=== PATIENT | female | born 1990 | race Caucasian/White ===

== ENCOUNTER 2020-06-20 05:04 | Outpatient (CLI) | payer BC, SELFPAY ==
[2020-06-20 10:35] LABS: Anion Gap 5.4 mmol/L (3-11); BUN 16 mg/dL (7-18); CO2 30.6 mmol/L (21.0-32.0); CREATININE 1.11 mg/dL (0.55-1.02); Calcium 8.7 mg/dL (8.5-10.1); Calculated LDL 57 mg/dL (<100); Chloride 105 mmol/L (98-107); Cholesterol 124 mg/dL (<200); Estimated GFR 58.96 (mL/min/1.73m2); Glucose 77 mg/dL (74-106); HDL Cholesterol 60 mg/dL (40-60); Sodium 141 mmol/L (136-145); Triglyceride 39 mg/dL (<150)
== END 2020-06-20 05:24 ==
PROVIDERS: PCP Nurse Practitioner Family; Visit Provider Nurse Practitioner Family
DX: Z00.00 Encounter for general adult medical examination without abnormal findings (principal); Z13.220 Encounter for screening for lipoid disorders
CPT/HCPCS: 36415; 80048; 80061

== ENCOUNTER 2020-06-28 12:33 | Outpatient (REF) | payer BC, SELFPAY ==
--- NOTE | 2020-06-28 12:05 | PAPFT_PTH ---
PATIENT: Grant Saavedra LOC: [facility] U#:[id number] AGE/SX: 29/F ROOM: RE06/28/[address]: Shirley Neff MD : 1990 BED: DIS: 06/28/2020 SPEC #: [id number] RECD: 06/28/20 12:50 STATUS: DEBBIE LABOY #: [id number] YASHIAR: 06/28/20 12:[address]: Shirley Neff DEPT: [facility] Cytology RECD BY: Eleni Britt ENTERED: 06/28/20 12:50 SP TYPE: PAPFT OT DR: Carrie Wolf, DARION Tissues: 1 - CX/ENDOCX FOR PAP SMEARS Procedures: PAP THIN PREP/[facility] Screening Comments: [id number] (CHLAMYDIA/GC)
[2020-07-01 15:11] LABS: Chlamydia Result Negative (Negative); GC Result Negative (Negative)
== END 2020-06-28 12:53 ==
LOC: LBN 12:33
PROVIDERS: PCP Nurse Practitioner Family; Visit Provider Obstetrics & Gynecology
DX: Z11.3 Encounter for screening for infections with a predominantly sexual mode of transmission (principal); Z12.4 Encounter for screening for malignant neoplasm of cervix
CPT/HCPCS: 87491; 87591; 88142

== ENCOUNTER 2020-06-28 12:46 | Outpatient (REF) | payer BC, SELFPAY | END 2020-06-28 13:06 | LOC: LBN 12:46 | PROVIDERS: PCP Nurse Practitioner Family; Visit Provider Obstetrics & Gynecology | DX: N89.8 Other specified noninflammatory disorders of vagina (principal) | CPT/HCPCS: 87480; 87510; 87660 ==

== ENCOUNTER 2020-09-26 02:20 | Outpatient (CLI) | payer BC, SELFPAY ==
[2020-09-26 11:53] LABS: ALT 27 U/L (14-59); AST 26 U/L (15-37); Triglyceride 41 mg/dL (<150)
== END 2020-09-26 02:21 | disposition home or self-care (01) ==
LOC: LBO 02:20
PROVIDERS: PCP Nurse Practitioner Family; Visit Provider Student in an Organized Health Care Education/Training Program
DX: Z79.899 Other long term (current) drug therapy (principal); L70.0 Acne vulgaris
CPT/HCPCS: 36415; 84450; 84460; 84478

== ENCOUNTER 2020-11-07 03:01 | Outpatient (CLI) | payer BC, SELFPAY ==
[2020-11-07 11:30] LABS: ALT 24 U/L (14-59); AST 23 U/L (15-37); Triglyceride 32 mg/dL (<150)
== END 2020-11-07 03:02 | disposition home or self-care (01) ==
PROVIDERS: PCP Nurse Practitioner Family; Visit Provider Student in an Organized Health Care Education/Training Program
DX: Z79.899 Other long term (current) drug therapy (principal)
CPT/HCPCS: 36415; 84450; 84460; 84478

== ENCOUNTER 2021-06-01 10:53 | Emergency (ER) | payer BC, SELFPAY ==
[2021-06-01] VITALS (21 sets, daily range): BP systolic 106–132; BP diastolic 66–87; PULSE 66–128; RESP 15–27; TEMP 36.4–36.6; O2SAT 96–100
--- NOTE | 2021-06-01 10:45 | RT.EKG_ITS ---
APPROVED REPORT Exam: Resting ECG Reason for Exam: chest pain Patient Location: E HR:100 bpm ECG Measurements Heart Rate 100 AXIS TN 163 P 59 QRSd 87 QRS 45 QT 342 T 43 QTc 440 Conclusion Sinus tachycardia...rate> 99. Sinus. No STEMI. I have reviewed and interpreted ECG and agree with software generated interpretation.
[2021-06-01 11:29] LABS: Abs Immature Grans 0.01 10^3/uL (0.0-0.06); Absolute Basophil Count 0.02 10^3/uL (0.0-0.2); Absolute Eosinophil Count 0.06 10^3/uL (0.0-0.7); Absolute Lymphocyte Count 2.25 10^3/uL (1.2-3.4); Absolute Monocyte Count 0.46 10^3/uL (0.1-0.8); Basophils % 0.3; Eosinophils % 0.8; HCT 44.6 % (36.0-46.0); HGB 15.4 g/dL (11.2-15.7); Immature Grans % 0.1; Lymphocytes % 29.2; MCHC 34.5 % (32.0-36.0); MCV 86.9 fL (80-95); MPV 10.2 fL (8.0-11.0); Neutrophils % 63.6; Nucleated RBC 0 %; Platelet Count 180 10^3/uL (130-400); RBC 5.13 10^6/uL (3.93-5.22); RDW 11.1 % (11.7-14.6); RDW-SD 35.1 fL
[2021-06-01 11:38] LABS: Lipase 139 U/L (73-393)
--- NOTE | 2021-06-01 11:45 | NUR.NOTE ---
11:30 - pt refusing toradol at this time encouraged to ring for nurse if she needs it Nursing Note:
[2021-06-01 11:46] LABS: Troponin I < 50 ng/L (<or=60)
[2021-06-01 11:51] LABS: HCG Quant, Pregnancy < 1 mIU/mL (1-3)
--- NOTE | 2021-06-01 12:00 | DI.RAD_ITS ---
Exam(s) XR CHEST 2V PA LATERAL EXAM: XR CHEST 2V PA LATERAL CLINICAL HISTORY: chest pain TECHNIQUE: 2D digital imaging was performed. COMPARISON: CT CHEST FOR PULMONARY EMBOLUS from 11/25/2015 CT CHEST FOR PULMONARY EMBOLUS from 11/25/2015 FINDINGS: The heart is not enlarged. The lungs are clear and well expanded. No pleural effusion seen. Mediastin al contours appear intact. IMPRESSION: Normal chest. RADIATION DOSE DELIVERED: Total DLP
[2021-06-01 12:01] LABS: D-Dimer 142 ng/mlFEU (<500)
--- NOTE | 2021-06-01 12:05 | ED.GENADUL_ITS ---
Discharge Plan Disposition Patient Disposition: HOME Condition: Stable Discharge Details Clinical Impression: Chest pain, Atypical chest pain Primary Care Provider: Carrie Wolf ED Provider: Eleni Mcbride Home Meds and New Rx's Prescriptions: Continued isotretinoin 30 mg capsule 30 mg PO BID RF: 0 ammonium lactate 12 % cream 1 applic topical QD-BID PRNRF: 0 Mirena 20 mcg/24 hours (6 yrs) 52 mg intrauterine device 1 insert intrauterine ONCE RF: 0 diclofenac potassium 50 mg tablet 50 mg PO BID 10 Days Qty: 20 RF: 0 cyclobenzaprine 10 mg tablet 10 mg PO TID 10 Days Qty: 30 RF: 0 albuterol sulfate 90 mcg/actuation HFA aerosol inhaler 2 inh inhalation Q6H PRN (Reason: shortness of breath or wheezing) Qty: 18 RF: 4 Discharge Instructions Instructions: Chest Pain (ED) Additional Instructions: Take the Flexeril as needed for musculoskeletal pain Ibuprofen 600 mg every 8 hours with food for the next 3 days and may use Tylenol 650 mg every 4-6 hours Please return with worsening pain, shortness of breath, fever, chills, or should you have new or worsening complaints Your tests today were all negative including your chest x-ray did that did not show abnormality I suspect your symptoms are musculoskeletal in nature but should you have persistent symptoms, my recommendation is that you see your doctor in follow-up Referrals: Carrie Wolf, SLOT FLOOR PERSON [Primary Care Provider] - Discharge Data Discharge Date/Time-TO BE ENTERED AT DEPARTURE: 06/01/21 12:59 Medical Decision Making Patient appears well, D-dimer negative, troponin -1-week of symptoms reassuring and a very low risk patient Denies any current chest discomfort, chest x-ray without acute abnormality, I ulloa spect her pain is musculoskeletal in nature, she will take ibuprofen and her Flexeril as needed for discomfort She is been Covid negative x2 rapid test at home Given low threshold to return should she have new or worsening She is PERC negative aside from tachycardia Patient is discharged home in stable condition with stable vital will need recheck in 1 to 2 days for reassessment Medical Records Medical records reviewed: Yes I reviewed the patient's medical records. Lab Data Lab results reviewed: Yes I reviewed the patient's lab results. HPI General Mode of arrival: ambulatory . Date/Time Provider Initiated Documentation: 06/01/21 11:06 . Limitations to Documentation: no limitations . Information obtained by: patient . HPI Narrative: This 30-year-old female presents with intermittent chest pain for the past week. She denies any associated shortness of breath. She states that she a week ago requesting pain in the mid scapular region and attributed it to working out and possibly laying in a position which may have caused strain. She states she awoke with the pain and has been treated with diclofenac and cyclobenzaprine. She states that she presents today secondary to persistent pain. She states that it radiates all over her chest and has not been in 1 specific location. She did have the pain in the left side of her chest intermittently for the past 24 hours which concerned her. There is no family history of coronary artery disease early on. There is no history of hypertension or hyperlipidemia for this patient. She does not smoke tobacco or use any illicit drugs. She denies any chance of as drain in place. She did denies using Accutane approximately 4 days ago. She has not had any issue with this medication before. Denies any calf pain or swelling, recent flights, surgeries, long drives, or history of coagulopathy. She denies any illnesses. She did take 2 - negative Covid test this week secondary to the pain. Denies any exacerbating or alleviating factors. She does state when she has pain which she does not at this time but if she moves her arms but does exacerbate her symptoms. Related Data Home Medications Medication Instructions Recorded Confirmed albuterol sulfate 90 mcg/actuation 2 inh INHALATION Q6H PRN #18 g 06/14/20 06/01/21 aerosol inhaler ammonium lactate 12 % topical cream 1 applic TOPICAL QD-BID PRN 01/16/21 06/01/21 isotretinoin 30 mg capsule 30 mg PO BID 01/16/21 05/29/21 levonorgestrel 20 mcg/24 hours (7 1 insert INTRAUTERINE ONCE 01/16/21 06/01/21 yrs) 52 mg intrauterine device cyclobenzaprine 10 mg tablet 10 mg PO TID 10 Days #30 tab 05/29/21 06/01/21 diclofenac potassium 50 mg tablet 50 mg PO BID 10 Days #20 tab 05/29/21 06/01/21 Previous Rx's Medication Instructions Recorded albuterol sulfate 90 mcg/actuation 2 inh INHALATION Q6H PRN #18 g 06/14/20 aerosol inhaler cyclobenzaprine 10 mg tablet 10 mg PO TID 10 Days #30 tab 05/29/21 diclofenac potassium 50 mg tablet 50 mg PO BID 10 Days #20 tab 05/29/21 Allergies Allergy/AdvReac Type Severity Reaction Status Date / Time No Known Allergies Allergy Verified 06/01/21 11:10 General Stated Complaint: Chest Pain CANDE: 2 Review of Systems All systems reviewed & are unremarkable except as noted in HPI and below PFSH All Active Problems (Updated 06/01/21 @ 12:52 by CROW Benjamin) Chest pain (Acute) Atypical chest pain (Acute) IUD surveillance (Chronic) Mirena IUD placed 07/19/20 Acne vulgaris (Acute) Abnormal uterine bleeding (Acute) Exercise-induced asthma (Acute) Medical History Abnormal uterine bleeding Acne vulgaris Exercise-induced asthma Generalized anxiety disorder IUD surveillance Mirena IUD placed 07/19/20 Surgical History H/O neck surgery (~2009) Bitracheal cleft cyst cauterization S/P left knee surgery [facility] IT band release Family History Mother Melanoma Hyperlipidemia Father Melanoma Brother No problems noted. Maternal Grandfather , 80's Diabetes Heart disease Melanoma Paternal Grandfather No problems noted. Maternal Grandmother Heart disease Stroke Paternal Grandmother No problems noted. Social History Smoking/Tobacco Use Status: Never Second Hand Exposure: No Smoking risk assessment performed?: Yes Alcohol Intake: current Alcohol Intake frequency: holidays/special occasions only Alcohol type: beer, wine and hard liquor Drug use: Never Substance use type: does not use Caregiver/Support person: No Household members: family Housing: house Communication Needs: None Do you need help understanding health information?: Never Pets and animals: Yes Pets and animals: dog(s) Sexually active: No Do you think of yourself as: straight/heterosexual Current gender identity: female What is your relationship status?: never How often do you talk on the phone with friends or family?: three or more times per week How often do you get together with friends or relatives?: three or more times per week How often do you attend islam or jainism services?: 1-3 times per year Do you belong to any clubs or organized social groups?: no Panel score (0-1 are the most socially isolated patients): 1 What type of physical activity do you participate in: walking, running and additional Details: dancing,studio classes Duration: > 90 minutes/day Frequency: daily Gisela/Mormon: agnostic Seatbelt use: always Drive intox or ride w/intox motor bus driver: No Do you feel safe at home: Yes Do you feel safe in your relationship?: Yes Female Reproductive History Menstrual Age of Menarche: 12 control method: none Exam Const General: cooperative, comfortable and no acute distress Eyes Pupils: PERRL Chest Other: No reproducible chest wall tenderness, no rashes or lesions Resp Effort & Inspection: normal respiratory effort Auscultation: clear to auscultation bilaterally Cardio Rate: regular rate Rhythm: regular rhythm GI Other: No abdominal tenderness, no flank tenderness Skin General skin exam: no rashes or lesions noted Neuro General: patient alert and patient oriented x3 Extrem Other: No calf swelling or tenderness Course Vital Signs Vital signs: Vital Signs Temperature 36.4 C L 06/01/21 11:02 Pulse 105 H 06/01/21 11:02 Respiratory Rate 17 06/01/21 11:02 Blood Pressure 129/87 06/01/21 11:02 Pulse Oximetry 98 06/01/21 11:02 Temperature 36.4 C L 06/01/21 11:02 Temperature Source Skin 06/01/21 11:02 Pulse 78 06/01/21 11:45 Pulse 79 06/01/21 11:50 Respiratory Rate 15 06/01/21 11:50 Respiratory Effort 06/01/21 11:15 Blood Pressure 111/66 06/01/21 11:45 Blood Pressure Mean 75 06/01/21 11:45 Pulse Oximetry 99 06/01/21 11:50 Oxygen Delivery Method Room Air 06/01/21 11:02 Oxygen Flow Rate 0 06/01/21 11:02 Pain Level 8 06/01/21 11:02 Comment 06/01/21 11:02 Lab/Test Results Lab/Test Results: Laboratory Tests Range/Units 06/01/21 06/01/21 06/01/21 11:15 11:15 11:15 WBC (4.4-10.8) 10^3/uL RBC (3.93-5.22) 10^6/uL Hgb (11.2-15.7) g/dL Hct (36.0-46.0) % MCV (80-95) fL MCH (27.0-33.0) pg MCHC (32.0-36.0) % RDW (11.7-14.6) % Plt Count (130-400) 10^3/uL MPV (8.0-11.0) fL Immature Gran % Neutrophils % Lymphocytes % Monocytes % Eosinophils % Basophils % Nucleated RBC % % Absolute Neutrophils (1.2-6.7) 10^3/uL Absolute Lymphocytes (1.2-3.4) 10^3/uL Absolute Monocytes (0.1-0.8) 10^3/uL Absolute Eosinophils (0.0-0.7) 10^3/uL Absolute Basophils (0.0-0.2) 10^3/uL D-Dimer (<500) ng/mlFEU 142 Troponin I (<or=60) ng/L Lipase (73-393) U/L 139 Beta HCG, Quant (1-3) mIU/mL < 1 L Range/Units 06/01/21 06/01/21 11:15 11:15 WBC (4.4-10.8) 10^3/uL 7.70 RBC (3.93-5.22) 10^6/uL 5.13 Hgb (11.2-15.7) g/dL 15.4 Hct (36.0-46.0) % 44.6 MCV (80-95) fL 86.9 MCH (27.0-33.0) pg 30.0 MCHC (32.0-36.0) % 34.5 RDW (11.7-14.6) % 11.1 L Plt Count (130-400) 10^3/uL 180 MPV (8.0-11.0) fL 10.2 Immature Gran % 0.1 Neutrophils % 63.6 Lymphocytes % 29.2 Monocytes % 6.0 Eosinophils % 0.8 Basophils % 0.3 Nucleated RBC % % 0 Absolute Neutrophils (1.2-6.7) 10^3/uL 4.90 Absolute Lymphocytes (1.2-3.4) 10^3/uL 2.25 Absolute Monocytes (0.1-0.8) 10^3/uL 0.46 Absolute Eosinophils (0.0-0.7) 10^3/uL 0.06 Absolute Basophils (0.0-0.2) 10^3/uL 0.02 D-Dimer (<500) ng/mlFEU Troponin I (<or=60) ng/L < 50 Lipase (73-393) U/L Beta HCG, Quant (1-3) mIU/mL PAWSS Have you Been Recently Intoxicated or Drunk Within the Last 30 days?: No Have you Ever Experienced Previous Episodes of Alcohol Withdrawal?: No Have you ever Experienced Withdrawal Seizures?: No Have you ever Experienced Delirium Tremens(DT)s?: No Have you ever undergone Alcohol Rehabilitation Treatment (i.e, inpt ot outpatient treatment programs)?: No Have you ever Experienced Blackouts?: No Have you ever Combined Alcohol with other Downers within the last 90 days?: No Have you ever Combined Alcohol with any other Substance of Abuse during the last 90 days?: No Positive Blood Alcohol level on Presentation? [PCS.BAL]: No Evidence of Increased Autonomic Activity (i.e. HR>120, tremor, sweating, agitation, nausea)?: No Result: 0
--- NOTE | 2021-06-01 12:23 | DI.VRAD_ITS ---
PROCEDURE INFORMATION: Exam: XR Chest Exam date and time: 06/01/2021 12:03 PM Age: 30 years old Clinical indication: Other: Chest pain TECHNIQUE: Imaging protocol: XR of the chest. Views: 2 views. COMPARISON: CT CHEST FOR PULMONARY EMBOLUS 11/25/2015 6:11 PM FINDINGS: Lungs: Clear lungs. Pleural spaces: No sizable pleural effusion. No pneumothorax. Heart/Mediastinum: Cardiomediastinal silhouette is within normal limits. Bones/joints: No acute displaced fracture or dislocation. IMPRESSION: No acute cardiopulmonary process. Dictated and Authenticated by: Elmer Gonzalez MD. Ordering:AURORA Knowles MD
== END 2021-06-01 12:59 | disposition home or self-care (01) ==
PROVIDERS: Emergency Provider Physician Assistant; PCP Nurse Practitioner Family
DX: R07.89 Other chest pain (principal); R00.0 Tachycardia, unspecified; M54.89 Other dorsalgia; R07.9 Chest pain, unspecified
CPT/HCPCS: 36415; 83690; 93005; 96374; 99284; 71046; 84484; 84702; 85025; 85379; 93010

== ENCOUNTER 2021-08-04 14:11 | Outpatient (REF) | payer BC, SELFPAY | END 2021-08-04 14:12 | disposition home or self-care (01) | LOC: LBN 14:11 | PROVIDERS: PCP Nurse Practitioner Family; Visit Provider Nurse Practitioner Family | DX: J02.9 Acute pharyngitis, unspecified (principal) | CPT/HCPCS: 87070 ==

== ENCOUNTER 2021-11-18 00:46 | Outpatient (CLI) | payer BC, SELFPAY ==
[2021-11-18 11:04] LABS: HCT 38.8 % (36.0-46.0); HGB 13.6 g/dL (11.2-15.7); MCH 30.8 pg (27.0-33.0); MCHC 35.1 % (32.0-36.0); MCV 88 fL (80-95); MPV 11.1 fL (8.0-11.0); Platelet Count 179 10^3/uL (130-400); RBC 4.42 10^6/uL (3.93-5.22); RDW 12.3 % (11.7-14.6); WBC 5.57 10^3/uL (4.4-10.8)
[2021-11-18 12:07] LABS: ALT 26 U/L (14-59); AST 26 U/L (15-37); Albumin 3.9 g/dL (3.4-5.0); Alkaline Phosphatase 55 U/L (46-116); Anion Gap 8.4 mmol/L (3-11); BUN 19 mg/dL (7-18); Bilirubin, Total 0.7 mg/dL (0.2-1.0); C-Reactive Protein 0.14 mg/dL (0.0-0.3); CO2 27.6 mmol/L (21.0-32.0); Calcium 8.7 mg/dL (8.5-10.1); Chloride 101 mmol/L (98-107); Glucose 81 mg/dL (74-106); Lipase 147 U/L (73-393); Potassium 3.8 mmol/L (3.5-5.1); Sodium 137 mmol/L (136-145); TSH (W/Ref FT4) 1.84 uIU/mL (0.36-3.74); Total Protein 7.5 g/dL (6.4-8.2)
[2021-11-18 12:28] LABS: Calculated LDL 71 mg/dL (<100); Cholesterol 143 mg/dL (<200); HDL Cholesterol 66 mg/dL (40-60); Triglyceride 31 mg/dL (<150)
[2021-11-19 13:59] LABS: IgA 329 mg/dL (85-499); Interpretation (See Note); Tissue Transglutaminase IgA <1.2 U/mL (<4.0)
== END 2021-11-18 00:47 | disposition home or self-care (01) ==
LOC: LBO 00:46
PROVIDERS: Family Medicine; PCP Nurse Practitioner Family; Visit Provider Nurse Practitioner Family
DX: I10 Essential (primary) hypertension (principal); R10.9 Unspecified abdominal pain; R14.0 Abdominal distension (gaseous); Z13.6 Encounter for screening for cardiovascular disorders
CPT/HCPCS: 36415; 80053; 80061; 82784; 83516; 83690; 85027; 84443; 86140

== ENCOUNTER → 2022-02-23 01:44 | Outpatient (CLI) | payer BC, SELFPAY ==
--- NOTE | 2022-02-23 07:15 | DI.RAD_ITS ---
Exam(s) XR TIB/FIB RT EXAM: XR TIB/FIB RT CLINICAL HISTORY: pain proximal tib/fib area after running,m79.604. TECHNIQUE: 2D digital imaging was performed. Two views. COMPARISON: No exams were available for comparison FINDINGS: BONES: No acute fracture is present. No bony destructive lesion is seen. Small enthesophyte at tibia l tubercle. No evidence of avulsion. Visualized portion of knee and ankle joints are unremarkable. SOFT TISSUE: Normal. IMPRESSION: Unremarkable radiographs of the right tibia and fibula. DATA REPOSITORY: RADIATION DOSE DELIVERED:
== END ==
PROVIDERS: PCP Nurse Practitioner Family; Visit Provider Family Medicine
DX: M79.604 Pain in right leg (principal)
CPT/HCPCS: 73590

== ENCOUNTER 2022-11-24 12:03 | Outpatient (CLI) | payer BC, SELFPAY ==
[2022-11-26 10:02] LABS: Syphilis Serology (RPR) Negative (Negative)
[2022-11-26 10:40] LABS: HIV-1/2 Ag & Ab Screen Negative (Negative)
[2022-11-26 11:47] LABS: Hepatitis B Surface Ag Negative (Negative)
[2022-11-26 12:02] LABS: Hepatitis C Ab w Rflx HCV PCR Negative (Negative)
[2022-11-26 12:20] LABS: Chlamydia Result Negative (Negative); GC Result Negative (Negative)
[2022-11-27 10:21] LABS: HSV Type 1 Ab, IgG Positive (Negative); HSV Type 2 Ab, IgG Negative (Negative)
== END 2022-11-24 12:04 | disposition home or self-care (01) ==
LOC: LBO 12:03
PROVIDERS: PCP Nurse Practitioner Family; Visit Provider Nurse Practitioner Family
DX: Z11.3 Encounter for screening for infections with a predominantly sexual mode of transmission (principal)
CPT/HCPCS: 36415; 86803; 87340; 87389; 87491; 87591; 86592; 86695; 86696

== ENCOUNTER 2023-07-02 11:57 | Outpatient (REF) | payer BC, SELFPAY ==
--- NOTE | 2023-07-02 11:20 | PAPFT_PTH ---
PATIENT: Grant Saavedra LOC: [facility]#:[id number] AGE/SX: 32/F ROOM: RE07/02/[address]: Lara Camacho MD : 1990 BED: DIS: 07/02/2023 SPEC #: [id number] RECD: 07/02/23 12:53 STATUS: WAYNECarol LABOY #: [id number] YASHIRA: 07/02/23 11:[address]: Lara Camacho DEPT: [facility] Cytology RECD BY: Eleni Britt ENTERED: 07/02/23 12:54 SP TYPE: PAPFT OTHR DR: Carrie Wolf, DARION Tissues: 1 - CX/ENDOCX FOR PAP SMEARS Procedures: PAP THIN PREP/[facility] Screening HPV DNA PROBE Comments: [id number]
== END 2023-07-02 11:58 | disposition home or self-care (01) ==
LOC: LBN 11:57
PROVIDERS: PCP Nurse Practitioner Family; Visit Provider Obstetrics & Gynecology
DX: Z01.419 Encounter for gynecological examination (general) (routine) without abnormal findings (principal); Z12.4 Encounter for screening for malignant neoplasm of cervix
CPT/HCPCS: 88142; 87624

== ENCOUNTER 2024-08-04 00:13 | Outpatient (CLI) | payer BC, SELFPAY ==
--- NOTE | 2024-08-04 12:05 | DI.MAMMO_ITS ---
Exam(s) MAMMO SCREENING EXAM: MAMMO SCREENING CLINICAL HISTORY: screening,Z12.31, FAMILY H/O BREAST CA,Z80.3. TECHNIQUE: Bilateral full field digital CC and MLO mammographic images were obtained with 3D tomosyn thesis and utilizing computer aided detection (CAD). COMPARISON: None. This is a baseline mammogram. Significant family history. FINDINGS: The fibroglandular tissue pattern is moderately dense There are no obvious spiculated masses nor malignant appearing microcalcification groups. There is no significant architectural distortion nor skin thickening-retraction. IMPRESSION: Moderately dense fibroglandular tissue. No obvious radiographic evidence of malignancy. BI-RADS Category 1 - Negative Breast Density - Category C - Heterogeneously dense Breast density Category C or D implies that the patient has dense breast tissue. Dense breast tissue can make it harder to find cancer on a mammogram. Dense breast tissue is also associated with an incr eased risk of breast cancer. This information about the result of the mammogram report was provided to the patient to raise their awareness. Use this report when you speak with the patient about their risks for breast cancer, which includes their family history. At that time, you may recommend additional screening tests (Ultrasoun d or MRI) as these tests may add significant information. A negative radiographic report should not delay biopsy if a dominant or clinically suspicious mass is present. Up to ten percent of cancers are not identified on mammography. A negative report may reinforce clinical impression. Adenosis and dense breasts may obscure an underlying neoplasm. False positive reports average 6 to 10%. Patient will receive a letter notifying them of these results.
== END 2024-08-04 00:33 ==
LOC: DI 00:13
PROVIDERS: PCP Nurse Practitioner Family; Visit Provider Obstetrics & Gynecology
DX: Z12.31 Encounter for screening mammogram for malignant neoplasm of breast (principal); Z80.3 Family history of malignant neoplasm of breast; R92.333 Mammographic heterogeneous density, bilateral breasts
CPT/HCPCS: 77063; 77067